=== PATIENT | female | born 1980 | race Two or more races ===

== ENCOUNTER 2017-07-07 10:28 | Emergency (ER) | payer MEDICAID, OTHER ==
[~2017-07-07] VITALS: Ht 154.9 cm; Wt 70.0 kg
[~2017-07-07 10:28] MED LIST: CEFU250T66 PO; FERR325T18 PO; IBUP-1223 PO; OMEP20TA62 PO; OXYC-302 PO; PREN1TAB85 PO; RANI150T8 PO; SENN-25 PO
[2017-07-07] MEDS ORDERED: LORA-446 PO (11:13)
[2017-07-07] MEDS ORDERED: LORazepam 1MG TABLET ONE (11:24)
[2017-07-07] MEDS ORDERED: LORazepam 1MG TABLET PO ONE (11:30)
[2017-07-07 12:34] VITALS: BP 125/75
== END 2017-07-07 12:37 | disposition home or self-care (01) ==
LOC: ED 12:31
DX: T50.905A Adverse effect of unspecified drugs, medicaments and biological substances, initial encounter (principal); R00.2 Palpitations; Y92.9 Unspecified place or not applicable
CPT/HCPCS: 93005; 99283

== ENCOUNTER 2018-04-11 11:48 | Emergency (ER) | payer BC, OTHER ==
[~2018-04-11] VITALS: Ht 154.9 cm; Wt 69.7 kg
[~2018-04-11 11:48] MED LIST changes: +LORA-446 PO; +RANI150T23 PO; -RANI150T8 PO
[2018-04-11 12:30] LABS: MEAN CORPUSCULAR HEMOGLOBIN 28.2 pg (27.0-34.8); MEAN CORPUSCULAR HGB CONC 33.3 g/dL (32.4-35.8); MEAN CORPUSCULAR VOLUME 84.6 fL (80-100); MEAN PLATELET VOLUME 8.9 fL (7.4-10.4); PLATELET COUNT 287 x10^3/uL (130-400); RED BLOOD COUNT 4.07 x10^6/uL (3.82-5.3); RED CELL DISTRIBUTION WIDTH 14.8 % (9.6-15.2)
[2018-04-11] MEDS ORDERED: ONDANSETRON 2MG/ML, 2ML IVPush ONE (12:30)
[2018-04-11] MEDS ORDERED: SODIUM CHLORIDE FLUSH 10ML SYR IVF ONE (12:30)
[2018-04-11] MEDS ORDERED: KETOROLAC 30 MG/1 ML IVPush ONE (12:30)
[2018-04-11] MEDS ORDERED: KETOROLAC 30 MG/1 ML ONE (12:33)
[2018-04-11] MEDS ORDERED: ONDANSETRON 2MG/ML, 2ML ONE (12:33)
[2018-04-11 12:37] LABS: ALANINE AMINOTRANSFERASE 20 U/L (12-78); ALBUMIN 3.4 g/dL (3.4-5.0); ANION GAP 6 mmol/L (5-15); CALCIUM 8.3 mg/dL (8.5-10.1); CHLORIDE 108 mmol/L (98-107); CREATININE 0.73 mg/dL (0.55-1.02)
[2018-04-11 12:42] LABS: ALKALINE PHOSPHATASE 90 U/L (45-117); BILIRUBIN,TOTAL 0.3 mg/dL (0.2-1.0); TOTAL PROTEIN 7.3 g/dL (6.4-8.2)
[2018-04-11 12:45] LABS: CULTURE INDICATED? YES; MICROSCOPIC INDICATED
[2018-04-11 12:52] LABS: MD SCAN
[2018-04-11 12:53] LABS: BASOPHILS # (AUTO) 0.03 x10^3/uL (0-0.1); BASOPHILS % (AUTO) 0 % (0-1); EOSINOPHILS # (AUTO) 0.06 x10^3/uL (0-0.4); EOSINOPHILS % (AUTO) 1 % (1-7); LYMPHOCYTES # (AUTO) 1.79 x10^3/uL (1-3.4); LYMPHOCYTES % (AUTO) 23 % (22-44); MONOCYTES # (AUTO) 0.54 x10^3/uL (0.2-0.8); MONOCYTES % (AUTO) 7 % (2-9); NEUTROPHILS # (AUTO) 5.26 x10^3/uL (1.8-6.8); NEUTROPHILS % (AUTO) 69 % (42-75)
[2018-04-11 13:07] VITALS: BP 121/62
== END 2018-04-11 13:42 | disposition home or self-care (01) ==
LOC: ED 12:41
DX: N30.90 Cystitis, unspecified without hematuria (principal); R11.0 Nausea
CPT/HCPCS: 36415; 80053; 81001; 83690; 84703; 85025; 87077; 87086; 87186; 96374; 96375; 99284; J1885; J2405